=== PATIENT | male | born 1990 | race African-American/Black ===

== ENCOUNTER 2020-04-24 14:28 | Emergency (ER) | payer MEDICAID, OTHER ==
[~2020-04-24] VITALS: Ht 165.1 cm; Wt 85.5 kg
[~2020-04-24 14:28] MED LIST: ALBU8HFA PO
[2020-04-24 15:21] VITALS: BP 141/81
== END 2020-04-24 16:00 | disposition left against medical advice (07) ==
LOC: ER 14:29
DX: E16.2 Hypoglycemia, unspecified (principal); Z53.21 Procedure and treatment not carried out due to patient leaving prior to being seen by health care provider
CPT/HCPCS: 82948